=== PATIENT | female | born 1990 | race American Indian/Alaskan Native ===

== ENCOUNTER 2019-06-18 09:22 | Emergency (ER) | payer MEDICAID ==
[2019-06-18 09:34] VITALS: BP 117/90
--- NOTE | 2019-06-18 10:46 | Emergency Department Report ---
HPI - General Chief Complaint: Extremity Injury, Lower Time Seen by Provider: 06/18/19 10:31 - HPI HPI: PT COMES TO ER WITH R ANKLE PAIN AFTER TRIPPING OVER CURB LAST PM AND ROLLING THE ANKLE. AMBULATION LIMITED WITH PAIN. NO OTHER INJURY. 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 PAIN SHARP AND WALKING MAKES WORSE ED Past Medical Hx - Past Medical History Previous Medical History?: Yes Hx Asthma: Yes Additional medical history: eczema - Surgical History Past Surgical History?: No - Social History Smoking Status: Never Smoker Substance Use Type: None ED Review of Systems ROS: Stated complaint: RT ANKLE PAIN Other details as noted in HPI Comment: All other systems reviewed and negative Physical Exam - Physical Exam Vital Signs: Vital Signs 06/18/19 09:33 Temperature 98.1 F Pulse Rate 86 Respiratory 15 Rate Blood Pressure 117/90 [Left] O2 Sat by Pulse 100 Oximetry Physical Exam: DIFFUSE R ANKLE SWELLING DP/PT NORMAL RAPID CAP REFILL WALKING LIMITED W PAIN A/O S1S2 LUNGS CTA ABD SNT ED Course Vital Signs 06/18/19 09:33 Temperature 98.1 F Pulse Rate 86 Respiratory 15 Rate Blood Pressure 117/90 [Left] O2 Sat by Pulse 100 Oximetry ED Medical Decision Making - Radiology Data Radiology results: report reviewed, image reviewed - Medical Decision Making XRAY NEG ICE DAVID/CRUTCHES MOTRIN FOR PAIN DC HOME WITH DC PLAN OF CARE INCLUDING ORTHO FOLLOW UP Vital Signs 06/18/19 09:33 Temperature 98.1 F Pulse Rate 86 Respiratory 15 Rate Blood Pressure 117/90 [Left] O2 Sat by Pulse 100 Oximetry - Differential Diagnosis RO FX/SPRAIN Critical care attestation.: If time is entered above; I have spent that time in minutes in the direct care of this critically ill patient, excluding procedure time. ED Disposition Clinical Impression: Ankle sprain Disposition: DC-01 TO HOME OR SELFCARE Is pt being admited?: No Does the pt Need Aspirin: No Condition: Stable Instructions: Ankle Sprain (ED) Additional Instructions: ICE REST ELEVATE DAVID CRUTCHES SEE DR VINCENT DEE REFERRAL BELOW MOTRIN OR TYLENOL FOR PAIN Referrals: ORLANDO BLANCHARD MD [Primary Care Provider] - 3-5 Days BRENDAN VINCENT MD [Staff Physician] - 3-5 Days Time of Disposition: 11:12
--- NOTE | 2019-06-18 10:54 | XRay Report ---
XR ankle 2V RT INDICATION / CLINICAL INFORMATION: Right ankle pain. COMPARISON: None available. FINDINGS: BONES/JOINT(S): There is a minimally displaced oblique fracture of the distal fibular diametaphysis. No significant degenerative changes. Ankle mortise alignment appears normal. SOFT TISSUES: There is soft tissue swelling adjacent to the fracture. There are no radiopaque foreign bodies. ADDITIONAL FINDINGS: None. Signer Name: Torey Fleming MD Signed: 06/18/2019 10:50 AM Workstation Name: [id number]
[2019-06-18] MEDS ORDERED: IBUPROFEN PO ONE (11:02)
== END 2019-06-18 12:14 | disposition home or self-care (01) ==
LOC: ED 09:22
DX: S93.401A Sprain of unspecified ligament of right ankle, initial encounter (principal); J45.909 Unspecified asthma, uncomplicated; Z88.8 Allergy status to other drugs, medicaments and biological substances; W18.40XA Slipping, tripping and stumbling without falling, unspecified, initial encounter; Y93.89 Activity, other specified; Y92.89 Other specified places as the place of occurrence of the external cause; Y99.8 Other external cause status